=== PATIENT | female | born 1960 | race Caucasian/White ===

== ENCOUNTER 2022-01-21 01:29 | Outpatient (CLI) | payer OTHER, SELFPAY ==
--- NOTE | 2022-01-21 07:51 | DI.MAMMO_ITS ---
Exam(s) MAMMO SCREENING EXAM: MAMMO SCREENING CLINICAL HISTORY: SCREENING, [id number] TECHNIQUE: Mammograms were interpreted according to the usual protocol including computer analysis w [employer] CAD system, tomosynthesis and C-view imaging. COMPARISON: 2013 through 2017 FINDINGS: The breasts are composed of heterogeneously dense fibroglandular densities, Breast Density category C . No suspicious masses or suspicious microcalcifications are seen. No skin thickening or abnormal axillary lymph nodes are seen. There has been no significant change from prior exams. IMPRESSION: BI-RADS Category 1, Negative mammogram. Yearly screening mammography is recommended. Breast Density Category C, heterogeneously Dense. The mammogram demonstrates the patient's breast tissue is dense. Dense breast tissue is very common a nd is not abnormal but dense breast tissue can make it harder to find cancer on a mammogram. Also, de nse breast tissue may increase breast cancer risk. This information about the result of the mammogram report was provided to the patient to raise their awareness. Use this report when you speak with the patient about their risks for breast cancer, which includes their family history. At that time, you may recommend additional screening tests (Ultrasound or MRI) as they might be useful based on their r isk. A negative radiographic report should not delay biopsy if a dominant or clinically suspicious mass is present. Up to ten percent of cancers are not identified on mammography. A negative report may reinforce clinical impression. Adenosis and dense breasts may obscure an underlying neoplasm. False positive reports average 6 to 10%.
== END 2022-01-21 01:49 ==
PROVIDERS: PCP Nurse Practitioner Primary Care; Visit Provider Internal Medicine
DX: Z12.31 Encounter for screening mammogram for malignant neoplasm of breast (principal)
CPT/HCPCS: 77063; 77067

== ENCOUNTER 2023-01-24 00:45 | Outpatient (CLI) | payer OTHER, SELFPAY ==
--- NOTE | 2023-01-24 12:30 | DI.MAMMO_ITS ---
Exam(s) MAMMO SCREENING EXAM: MAMMO SCREENING CLINICAL HISTORY: [place] AUTH# [id number] SCREENING MAMMO TECHNIQUE: Mammograms were interpreted according to the usual protocol including computer analysis w [employer] CAD system, tomosynthesis and C-view imaging. COMPARISON: 2013 through 2021 FINDINGS: The breasts are composed of heterogeneously dense fibroglandular densities, Breast Density category C . No suspicious masses or suspicious microcalcifications are seen. No skin thickening or abnormal axillary lymph nodes are seen. There has been no significant change from prior exams. IMPRESSION: BI-RADS Category 1, Negative mammogram. Yearly screening mammography is recommended. Breast Density Category C, heterogeneously Dense. The mammogram demonstrates the patient's breast tissue is dense. Dense breast tissue is very common a nd is not abnormal but dense breast tissue can make it harder to find cancer on a mammogram. Also, de nse breast tissue may increase breast cancer risk. This information about the result of the mammogram report was provided to the patient to raise their awareness. Use this report when you speak with the patient about their risks for breast cancer, which includes their family history. At that time, you may recommend additional screening tests (Ultrasound or MRI) as they might be useful based on their r isk. A negative radiographic report should not delay biopsy if a dominant or clinically suspicious mass is present. Up to ten percent of cancers are not identified on mammography. A negative report may reinforce clinical impression. Adenosis and dense breasts may obscure an underlying neoplasm. False positive reports average 6 to 10%.
== END 2023-01-24 01:05 ==
PROVIDERS: PCP Nurse Practitioner Primary Care; Visit Provider Physician Assistant
DX: Z12.31 Encounter for screening mammogram for malignant neoplasm of breast (principal); R92.2 Inconclusive mammogram
CPT/HCPCS: 77063; 77067

== ENCOUNTER → 2024-02-05 04:43 | Outpatient (CLI) | payer OTHER, SELFPAY ==
--- NOTE | 2024-02-05 | DI.DEXA_ITS ---
Exam(s) XR DEXA BONE DENSITY W/WO JAMES EXAM: XR DEXA BONE DENSITY W/WO JAMES CLINICAL HISTORY: [id number].PYRIDOXINE DEFICIENCY,E531.VIT D DEFICENT,POSTMENOPAUSAL TECHNIQUE: COMPARISON: No exams were available for comparison FINDINGS: Lateral Spine Image: Unremarkable. No compression deformities identified. Left hip: Total T-Score: -1.6 Total Z-Score: -0.6 T- and Z-scores: Findings are consistent with osteopenia. Lumbar Spine: Total T-Score: -1.6 Total Z-Score: -0.1 T- and Z-scores: Findings are consistent with osteopenia. IMPRESSION: No evidence of osteoporosis.
--- NOTE | 2024-02-05 | DI.MAMMO_ITS ---
Exam(s) MAMMO SCREENING EXAM: MAMMO SCREENING CLINICAL HISTORY: [id number],SCREENING,Z12.39. TECHNIQUE: Bilateral full field digital CC and MLO mammographic images were obtained with 3D tomosyn thesis and utilizing computer aided detection (CAD). COMPARISON: Prior mammograms were reviewed. FINDINGS: There has been no significant change in the appearance and distribution of the fibroglandular tissue. There are no new spiculated masses nor malignant appearing microcalcification groups. There is no significant architectural distortion nor skin thickening-retraction. IMPRESSION: No radiographic evidence of malignancy. BI-RADS Category 1 - Negative Breast Density - Category B - Scattered areas of fibroglandular density Breast density Category C or D implies that the patient has dense breast tissue. Dense breast tissue can make it harder to find cancer on a mammogram. Dense breast tissue is also associated with an incr eased risk of breast cancer. This information about the result of the mammogram report was provided to the patient to raise their awareness. Use this report when you speak with the patient about their risks for breast cancer, which includes their family history. At that time, you may recommend additional screening tests (Ultrasoun d or MRI) as these tests may add significant information. A negative radiographic report should not delay biopsy if a dominant or clinically suspicious mass is present. Up to ten percent of cancers are not identified on mammography. A negative report may reinforce clinical impression. Adenosis and dense breasts may obscure an underlying neoplasm. False positive reports average 6 to 10%. Patient will receive a letter notifying them of these results.
== END ==
PROVIDERS: PCP Nurse Practitioner Primary Care; Visit Provider Physician Assistant
DX: E53.1 Pyridoxine deficiency (principal); Z12.31 Encounter for screening mammogram for malignant neoplasm of breast; Z13.820 Encounter for screening for osteoporosis
CPT/HCPCS: 77063; 77067; 77080

== ENCOUNTER 2024-05-22 11:12 | Emergency (ER) | payer OTHER, SELFPAY ==
[2024-05-22 11:24] VITALS: BP 143/94; PULSE 68; RESP 16; TEMP 36.7; O2SAT 98
[2024-05-22 12:38] LABS: Abs Immature Grans 0.02 10^3/uL (0.0-0.06); Absolute Basophil Count 0.04 10^3/uL (0.0-0.2); Absolute Eosinophil Count 0.17 10^3/uL (0.0-0.7); Absolute Lymphocyte Count 1.73 10^3/uL (1.2-3.4); Absolute Monocyte Count 0.54 10^3/uL (0.1-0.8); Basophils % 0.7 %; Eosinophils % 2.8 %; HCT 40.8 % (36.0-46.0); HGB 13.6 g/dL (11.2-15.7); Immature Grans % 0.3 %; Lymphocytes % 28.4 %; MCH 31.6 pg (27.0-33.0); MCHC 33.3 % (32.0-36.0); MCV 95 fL (80-95); MPV 9.4 fL (8.0-11.0); Monocytes % 8.9 %; Neutrophils % 58.9 %; Platelet Count 181 10^3/uL (130-400); RDW 12.4 % (11.7-14.6); RDW-SD 43.1 fL
[2024-05-22 12:53] LABS: ALT 70 U/L (14-59); AST 37 U/L (15-37); Albumin 3.8 g/dL (3.4-5.0); Alkaline Phosphatase 118 U/L (46-116); Anion Gap 10.6 mmol/L (3-11); BUN 14 mg/dL (7-18); Bilirubin, Total 0.51 mg/dL (0.2-1.0); CO2 24.4 mmol/L (21.0-32.0); CREATININE 0.7 mg/dL (0.55-1.02); Calcium 9.3 mg/dL (8.5-10.1); Chloride 104 mmol/L (98-107); Creatine Kinase 277 U/L (26-192); Estimated GFR 98.34 (mL/min/1.73m2); Glucose 105 mg/dL (74-106); Potassium 4.1 mmol/L (3.5-5.1); Sodium 139 mmol/L (136-145); Total Protein 7.5 g/dL (6.4-8.2)
[2024-05-22 13:26] LABS: D-Dimer > 7500 ng/mlFEU (<500)
[2024-05-22 13:30] VITALS: O2SAT 98
--- NOTE | 2024-05-22 13:37 | ED.GENADUL_ITS ---
Discharge Plan Disposition Patient Disposition: Home Condition: Stable Discharge Details Clinical Impression: Left leg swelling Primary Care Provider: Rina Lozano ED Provider: Sveta Rosen Home Meds and New Rx's Prescriptions: Continued magnesium oxide 400 mg (241.3 mg magnesium) tablet 400 mg PO DAILY montelukast 10 mg tablet 10 mg PO DAILY PRN fluticasone propion-salmeterol [Wixela Inhub] 100-50 mcg/dose blister with device 1 inh INHALATION DAILY PRN Discharge Instructions Instructions: Deep Vein Thrombosis (DVT) ED Additional Instructions: Take the Eliquis daily until you have your ultrasound, this will treat you for a deep vein thrombosis An ultrasound will be performed on Friday for confirmation and you will present to the emergency department after ultrasound for reassessment to determine if you need additional blood thinner Please refrain from running for the next several days until we have a definitive diagnosis Stay away from ibuprofen and aspirin while you take this medication If you do hit your head you should be evaluated immediately Please return should develop chest pain, shortness of breath, or with any new or worsening complaints Referrals: Rina Lozano [Primary Care Provider] - 3 days Discharge Data Discharge Date/Time-TO BE ENTERED AT DEPARTURE: 05/22/24 13:59 HPI General Date/Time Provider Initiated Documentation: 05/22/24 12:05 . HPI Narrative: This otherwise healthy 63-year-old female presents with swollen calf with discomfort. She is a daily runner and noticed that she had some discomfort today when she was going out for a run. She states she been driving intermittently to [place] she is relocating in July. Denies any chest pain or shortness of breath. Denies any dizziness or weakness. Denies history of coagulopathy or tobacco use. Denies any exogenous hormones. Related Data Home Medications ?Medication ?Instructions ?Recorded ?Confirmed fluticasone 100 mcg-salmeterol 50 1 inh inhalation DAILY PRN 05/22/24 05/22/24 mcg/dose blistr powdr for inhalation (Wixela Inhub) magnesium oxide 400 mg (241.3 mg 400 mg PO DAILY 05/22/24 05/22/24 magnesium) tablet montelukast 10 mg tablet 10 mg PO DAILY PRN 05/22/24 05/22/24 General Stated Complaint: GenMedical JOI: 3 Exam Narrative Exam Narrative: 63-year-old female in no acute distress, specifically no respiratory distress cardiac rate rhythm regular, swelling and firmness to left calf without evidence of cellulitis, DP and PT pulses intact and sensation intact. Course Vital Signs Vital signs: Vital Signs Temperature 36.7 C 05/22/24 11:24 Pulse 68 05/22/24 11:24 Respiratory Rate 16 05/22/24 11:24 Blood Pressure 143/94 H 05/22/24 11:24 Pulse Oximetry 98 05/22/24 11:24 Temperature 36.7 C 05/22/24 11:24 Pulse 68 05/22/24 11:24 Respiratory Rate 16 05/22/24 11:24 Respiratory Effort Normal 05/22/24 13:30 Respiratory Depth Normal 05/22/24 13:30 Respiratory Pattern Normal 05/22/24 13:30 Blood Pressure 143/94 H 05/22/24 11:24 Pulse Oximetry 98 05/22/24 13:30 Oxygen Delivery Method Room Air 05/22/24 13:30 Pain Level 7 05/22/24 13:30 Lab/Test Results Lab/Test Results: Laboratory Tests Range/Units 05/22/24 05/22/24 12:10 12:51 WBC (4.4-10.8) 10^3/uL 6.10 RBC (3.93-5.22) 10^6/uL 4.30 Hgb (11.2-15.7) g/dL 13.6 Hct (36.0-46.0) % 40.8 MCV (80-95) fL 95 MCH (27.0-33.0) pg 31.6 MCHC (32.0-36.0) % 33.3 RDW (11.7-14.6) % 12.4 Plt Count (130-400) 10^3/uL 181 MPV (8.0-11.0) fL 9.4 Immature Gran % % 0.3 Neutrophils % % 58.9 Lymphocytes % % 28.4 Monocytes % % 8.9 Eosinophils % % 2.8 Basophils % % 0.7 Nucleated RBC % (0.0-0.3) % 0.0 Absolute Neutrophils (1.2-6.7) 10^3/uL 3.60 Absolute Lymphocytes (1.2-3.4) 10^3/uL 1.73 Absolute Monocytes (0.1-0.8) 10^3/uL 0.54 Absolute Eosinophils (0.0-0.7) 10^3/uL 0.17 Absolute Basophils (0.0-0.2) 10^3/uL 0.04 D-Dimer Cancelled > 7500 H Sodium (136-145) mmol/L 139 Potassium (3.5-5.1) mmol/L 4.1 Chloride (98-107) mmol/L 104 Carbon Dioxide (21.0-32.0) mmol/L 24.4 Anion Gap (3-11) mmol/L 10.6 BUN (7-18) mg/dL 14 Creatinine (0.55-1.02) mg/dL 0.7 Est GFR (CKD-EPI 2020) (mL/min/1.73m2) 98.34 Glucose (74-106) mg/dL 105 Calcium (8.5-10.1) mg/dL 9.3 Total Bilirubin (0.2-1.0) mg/dL 0.51 AST (15-37) U/L 37 ALT (14-59) U/L 70 H Alkaline Phosphatase (46-116) U/L 118 H Creatine Kinase (26-192) U/L 277 H Total Protein (6.4-8.2) g/dL 7.5 Albumin (3.4-5.0) g/dL 3.8 Medical Decision Making 63-year-old female presenting with left calf swelling and tenderness with recent intermittent travel/driving to [place]. D-dimer and labs were ordered as we do not have ultrasound availability for basic screening. D-dimer is greater than 7500, I do have concern the patient has a DVT, I will start her on Eliquis for the next few days until we are able to perform an ultrasound which will be ordered for Friday. She exhibits no signs or symptoms or exam findings consistent with pulmonary embolism. I did check a CPK as she is a runner but she does only endorse running 5 miles every other day and she is encouraged to hydrate, her levels to 77 which is not concerning at this time. She will warrant reassessment for ultrasound on Friday and she is given very low threshold to return should she start to exhibit any signs or symptoms consistent with pulmonary embolism. I have asked patient on multiple encounters during this visit if she has had any chest discomfort or shortness of breath and she has declined adamantly. She does not take any exogenous hormones. Discharged home in stable condition with stable vitals on Eliquis 2-day supply Quality:SDOH Health Related Social Needs: No Data to Display PFSH All Active Problems (Updated 05/22/24 @ 13:39 by JOHN Colin) Left leg swelling (Acute) Social History Smoking/Tobacco Use Status: Never Smoking risk assessment performed?: Yes Alcohol Intake: current Alcohol Intake frequency: holidays/special occasions only Drug use: Never Substance use type: does not use Housing: house Do you feel safe at home: Yes Do you feel safe in your relationship?: Yes
[2024-05-22] MEDS: Apixaban 5 MG TAB 30 MG PO (13:53)
[2024-05-22] MEDS: Apixaban 5 MG TAB 10 MG PO (13:53)
== END 2024-05-22 13:59 | disposition home or self-care (01) ==
PROVIDERS: Emergency Provider Physician Assistant; PCP Nurse Practitioner Primary Care
DX: R22.42 Localized swelling, mass and lump, left lower limb (principal); M79.89 Other specified soft tissue disorders
CPT/HCPCS: 80053; 82550; 99283; 85025; 85379

== ENCOUNTER 2024-06-28 13:02 | Emergency (ER) | payer OTHER, SELFPAY ==
[2024-06-28] VITALS (24 sets, daily range): BP systolic 117–148; BP diastolic 68–90; PULSE 51–67; RESP 10–16; TEMP 36.7; O2SAT 97–100
--- NOTE | 2024-06-28 15:52 | ED.GENADUL_ITS ---
Discharge Plan Disposition Patient Disposition: Home Discharge Details Clinical Impression: Hx of falling, HX: anticoagulation Primary Care Provider: Rina Lozano ED Provider: Victoriano Helms Home Meds and New Rx's Prescriptions: Continued acyclovir 200 mg capsule 200 mg PO BID PRN Eliquis 5 mg tablet 5 mg PO BID magnesium oxide 400 mg (241.3 mg magnesium) tablet 400 mg PO DAILY montelukast 10 mg tablet 10 mg PO DAILY PRN fluticasone propion-salmeterol [Wixela Inhub] 100-50 mcg/dose blister with device 1 inh INHALATION DAILY PRN Discharge Instructions Additional Instructions: You are seen in the emergency department for your history of falling. Your CAT scan showed no sign of any bleeding in your head. As we discussed if you began developing nausea vomiting blurry vision or severe headache please return to the emergency department. For your pain please take medications as follows: 1. Take acetaminophen (Tylenol), 1,000 mg (two 500 mg tabs) every 6 hours Discharge Data Discharge Date/Time-TO BE ENTERED AT DEPARTURE: 06/28/24 16:23 HPI General Date/Time Provider Initiated Documentation: 06/28/24 13:10 . HPI Narrative: MDM Primary survey intact. Reassuring shock index. On secondary survey patient has no significant injuries. She had mild tenderness over her buttocks but per pelvis is stable and she has been amatory so my suspicion for any acute osseous abnormality is low. No pain or proportion to suggest necrotizing soft tissue infection. No distracting injury. No indication for CT of her cervical spine based on Nexus criteria. Given apixaban use will obtain CT head. Clear lungs bilaterally so my suspicion for any pneumothorax is low. Per Nexus criteria, cervical CT not obtained. The patient had no c-spine midline tenderness, no evidence of intoxication, was AAOx3, had no focal neurological deficits, and no painful distracting injuries. 06/29 Late charting due to patient care. CT head negative for any acute intracranial hemorrhages. Patient and I discussed that she should certainly return to the emergency department if she developed nausea vomiting dizziness or if she had any recurrent falls. She understood her return indications and was discharged with an empiric trial of expectant outpatient management. HPI This is a 63-year-old female anticoagulated with apixaban in the setting of DVTs arrived to the emergency department via private vehicle in the setting of a fall in which she struck her head. Patient was reportedly lifting a tire out of a truck and it bounced on the ground and knocked her over. She had the back of her head on the pavement. She is having some pain in her buttocks but has been ambulatory. She denies loss of consciousness nausea vomiting headache and any bleeding. Exam General: Well-appearing in no acute distress speaking in complete sentences. Head: Normocephalic, atraumatic. Eye:[Pupils equal, round reactive to light.] Extraocular eye movements intact. No conjunctival injection. No scleral icterus. Ear, nose, mouth, throat: Grossly normal inspection. Normal voice, handling secretions normally. No hemotympanum bilaterally Neck: Trachea midline. No midline cervical spinal tenderness. Cardiovascular: Well-perfused distal extremities. Back: No midline thoracic nor spinal tenderness. Respiratory: Nonlabored respiration. Clear lungs bilaterally Gastrointestinal: Nondistended abdomen. Musculoskeletal: No edema. Moving all 4 extremities spontaneously. Skin: Normal for age and race, grossly normal temperature and turgor. No acute rash. Neurologic: Alert and appropriate, no apparent acute deficits. Psychiatric: Mood and manner are appropriate. Grooming and personal hygiene are appropriate. Related Data Home Medications ?Medication ?Instructions ?Recorded ?Confirmed fluticasone 100 mcg-salmeterol 50 1 inh inhalation DAILY PRN 05/22/24 06/28/24 mcg/dose blistr powdr for inhalation (Wixela Inhub) magnesium oxide 400 mg (241.3 mg 400 mg PO DAILY 05/22/24 06/28/24 magnesium) tablet montelukast 10 mg tablet 10 mg PO DAILY PRN 05/22/24 06/28/24 acyclovir 200 mg capsule 200 mg PO BID PRN 06/28/24 06/28/24 apixaban 5 mg tablet (Eliquis) 5 mg PO BID 06/28/24 06/28/24 Allergies Allergy/AdvReac Type Severity Reaction Status Date / Time No Known Allergies Allergy Unverified 06/28/24 13:37 General Stated Complaint: Fall/Non TraumaCriteria JOI: 2 Course Vital Signs Vital signs: Vital Signs Temperature 36.7 C 06/28/24 13:03 Pulse 67 06/28/24 13:03 Respiratory Rate 10 L 06/28/24 13:03 Blood Pressure 148/85 H 06/28/24 13:03 Pulse Oximetry 98 06/28/24 13:03 Temperature 36.7 C 06/28/24 13:03 Pulse 55 L 06/28/24 15:31 Respiratory Rate 10 L 06/28/24 13:03 Respiratory Effort Normal 06/28/24 13:08 Blood Pressure 129/83 06/28/24 15:31 Blood Pressure Mean 97 06/28/24 15:31 Pulse Oximetry 98 06/28/24 15:40 Oxygen Delivery Method Room Air 06/28/24 13:03 Oxygen Flow Rate 0 06/28/24 13:03 Pain Level 8 06/28/24 13:03 Comment 8/10 butt pain and 5/10 head pain 06/28/24 13:03 Medical Decision Making Quality:SDOH Health Related Social Needs: No Data to Display PFSH All Active Problems (Updated 06/28/24 @ 16:13 by Victoriano Helms MD) HX: anticoagulation (Acute) Hx of falling (Acute) Social History Smoking/Tobacco Use Status: Never Smoking risk assessment performed?: Yes Alcohol Intake: current Alcohol Intake frequency: holidays/special occasions only Drug use: Never Substance use type: does not use Housing: house Do you feel safe at home: Yes Do you feel safe in your relationship?: Yes
--- NOTE | 2024-06-28 16:00 | DI.CT_ITS ---
Exam(s) CT HEAD WO EXAM: CT HEAD WO CLINICAL HISTORY: Fall head strike. TECHNIQUE: Imaging Protocol: Axial computed tomography images with coronal and sagittal reformatted images were created and reviewed COMPARISON: No exams were available for comparison FINDINGS: Ventricles and Extra axial spaces: Normal in size and morphology for the patient's age. Hemorrhage: None. Cerebral parenchyma: No evidence of acute infarct or mass. Midline shift: None. Brainstem/Cerebellum: Normal. Calvarium: Normal. Visualized Paranasal sinuses:Clear. Mastoids: Clear. Soft Tissues: Unremarkable. ORBITS: Unremarkable. PITUITARY: Not enlarged. IMPRESSION: No acute intracranial process. RADIATION DOSE DELIVERED: Total DLP DATA REPOSITORY: All CT scans at this facility are submitted to the National Radiology Data Registry (NRDR) Dose Index Registry (DIR) with the [employer] ([employer]). RADIATION OPTIMIZATION: All CT scans at this facility use at least one of these dose optimization te chniques: automated exposure control; mA and/or kV adjustment per patient size (includes targeted exa ms where dose is matched to clinical indication); or iterative reconstruction.
== END 2024-06-28 16:23 | disposition home or self-care (01) ==
PROVIDERS: Emergency Provider Emergency Medicine; PCP Nurse Practitioner Primary Care
DX: S09.8XXA Other specified injuries of head, initial encounter (principal); Z79.01 Long term (current) use of anticoagulants; Z86.718 Personal history of other venous thrombosis and embolism; W18.09XA Striking against other object with subsequent fall, initial encounter; Y93.89 Activity, other specified; Y92.89 Other specified places as the place of occurrence of the external cause
CPT/HCPCS: 99284; 70450; 99283